=== PATIENT | male | born 1995 | race Native Hawaiian/Other Pacific Islander ===

== ENCOUNTER 2018-07-16 14:51 | Emergency (ER) | payer OTHER ==
[2018-07-16 15:05] VITALS: BP 129/73; PULSE 58; RESP 17; TEMP 97.8; O2SAT 100
--- NOTE | 2018-07-16 15:26 | ED PDOC ---
HPI: General Adult Time Seen by Provider: 07/16/18 15:08 Chief Complaint (Nursing): Abnormal Skin Integrity Chief Complaint (Provider): Abnormal Skin Integrity History Per: Patient History/Exam Limitations: no limitations Onset/Duration Of Symptoms: Days (x7) Additional Complaint(s): Kendal Bernal is a 22 year old male with no past medical history who is presenting to the ED for evaluation of itchy rash to ears, forehead, neck, and arms, onset 1 week ago. Patient states [facility] where they prescribed him a cream to use, of which he doesnt know the name , but denies any relief of symptoms. He also denies any new exposures. Otherwise patient reports (-) throat swelling, (-) tongue / lip swelling, (-) dyspnea, (-) cough, (-) wheezing, (-) abdominal pain, (-) nausea (-) vomiting (- ) sick contacts (-) recent travel (-) fever/chills. PMD: none provided Past Medical History Reviewed: Historical Data, Nursing Documentation, Vital Signs Vital Signs: Last Vital Signs Temp 97.8 F 07/16/18 15:02 Pulse 58 L 07/16/18 15:02 Resp 17 07/16/18 15:02 BP 129/73 07/16/18 15:02 Pulse Ox 100 07/16/18 16:12 - Medical History PMH: No Chronic Diseases - Surgical History Surgical History: No Surg Hx - Family History Family History: States: Unknown Family Hx - Social History Current smoker - smoking cessation education provided: No Alcohol: None Drugs: Denies - Home Medications Home Medications: Ambulatory Orders Medication Instructions Recorded DiphenhydrAMINE [Benadryl] 50 mg PO Q6 PRN #20 cap 07/16/18 Famotidine [Pepcid] 40 mg PO DAILY #5 tablet 07/16/18 Methylprednisolone [Medrol Dose 4 mg PO DAILY #21 mg 07/16/18 Pack (21 tabs)] - Allergies Allergies/Adverse Reactions: Allergies Allergy/AdvReac Type Severity Reaction Status Date / Time No Known Allergies Allergy Verified 07/16/18 15:02 Review of Systems ROS Statement: Except As Marked, All Systems Reviewed And Found Negative ENT: Negative for: Throat Swelling Respiratory: Negative for: Cough Gastrointestinal: Negative for: Nausea, Vomiting, Abdominal Pain, Diarrhea Skin: Positive for: Rash (to arms, ears, and forehead) Physical Exam - Reviewed Nursing Documentation Reviewed: Yes Vital Signs Reviewed: Yes - Physical Exam Comments: GENERAL APPEARANCE: Patient is awake, alert, oriented x 3, in no acute distress. He is resting comfortably. SKIN: (+) Flesh colored papules to bilateral upper extremities, paracervical regions, and forehead (-) excoriations (-) crusting (-) discharge (-) erythema HENT: (-) conjunctival injection, (-) chemosis. Oropharynx: clear (-) tongue or lip swelling, (-) tonsillar exudates, (-) erythema. Airway: Patent (-) stridor, (-) hoarseness. Mucous membranes moist. Nares: Patent (-) rhinorrhea. NECK: Supple, FROM(-) lymphadenopathy, (-) tenderness. CARDIOVASCULAR: Normal rate and rhythm CHEST: (-) rales, (-) wheezing, (-) dyspnea, (-) stridor. Breath sounds equal bilaterally. Respirations even and nonlabored. ABDOMEN: Soft. (-) tenderness, (-) distention, (-) guarding NEURO: Mental status: Patient is alert, oriented, and with normal strength and tone. Gait: steady. Speech: clear. (-) facial asymmetry (-) aphasia - ECG O2 Sat by Pulse Oximetry: 100 (RA) Pulse Ox Interpretation: Normal Medical Decision Making Medical Decision Making: Time: 15:15 Impression: Rash, Pruritis Plan: --Benadryl 50 mg PO (Not driving) --Pepcid 40 mg PO --PredniSONE tab 40 mg PO 1605 On re-evaluation, patient reports improvement of symptoms. On exam, patient remains AAOx3, in no acute distress. Lungs clear to auscultation, cardiac RRR, repeat neuro exam shows no focal findings. Vitals stable. Lab/Diagnostic results d/w the patient in great detail. Diagnosis of rash, pruritis d/w the patient. Based on history, exam and diagnostic results, plan will be for outpatient follow up. Patient instructed to follow-up with pmd / referral provided / the clinic in 1- 2 days without fail. Advised to take medication as prescribed. Return to the emergency room at any time for any new or worsening symptoms. Patient states he fully agrees with and understands discharge instructions. States that he agrees with the plan and disposition. Verbalized and repeated discharge instructions and plan. I have given the patient opportunity to ask any additional questions. Scribe Attestation: Documented by Leelee Mcghee, acting as a scribe for Maya Damico PA-C. Provider Scribe Attestation: All medical record entries made by the Scribe were at my direction and personally dictated by me. I have reviewed the chart and agree that the record accurately reflects my personal performance of the history, physical exam, medical decision making, and the department course for this patient. I have also personally directed, reviewed, and agree with the discharge instructions and disposition. Disposition - Clinical Impression Clinical Impression: Rash and nonspecific skin eruption, Generalized pruritus - Patient ED Disposition Is Patient to be Admitted: No Counseled Patient/Family Regarding: Studies Performed, Diagnosis, Need For Followup, Rx Given - Disposition Referrals: [facility] [Outside] Disposition: Routine/Home Disposition Time: 16:08 Condition: STABLE Additional Instructions: The emergency medical care you received today was directed at your acute symptoms. If you were prescribed any medication, please fill it and take as directed. It may take several days for your symptoms to resolve. Return to the Emergency Department if your symptoms worsen, do not improve, or if you have any other problems. Please contact your doctor in 2 days for re-evaluation and follow up / or call one of the physicians/clinics you have been referred to that are listed on the Patient Visit Information form that is included in your discharge packet. Bring any paperwork you were given at discharge with you along with any medications you are taking to your follow up visit. Our treatment cannot replace ongoing medical care by a primary care provider (PCP) outside of the emergency department. Prescriptions: DiphenhydrAMINE [Benadryl] 50 mg PO Q6 PRN #20 cap PRN Reason: Itching / Pruritus Famotidine [Pepcid] 40 mg PO DAILY #5 tablet Methylprednisolone [Medrol Dose Pack (21 tabs)] 4 mg PO DAILY #21 mg Instructions: Skin Rash, Itchy Skin Forms: [facility] ([place]se) Print Language: UKRAINIAN - POA Present On Arrival: None
== END 2018-07-16 16:23 | disposition home or self-care (01) ==
LOC: H.ER 14:51
DX: L29.9 Pruritus, unspecified (principal)